=== PATIENT | male | born 1950 | race African-American/Black ===

== ENCOUNTER 2022-12-14 14:47 | Emergency (ER) | payer OTHER ==
[2022-12-14] MEDS ORDERED: Fluorescein Opthalmic Strip ONE (16:32)
[2022-12-14] MEDS ORDERED: Proparacaine 0.5% Opth 15 ML BOT ONE (16:32)
== END 2022-12-14 17:10 ==
LOC: ERS 14:47
DX: H10.9 Unspecified conjunctivitis (principal); E11.9 Type 2 diabetes mellitus without complications; E78.00 Pure hypercholesterolemia, unspecified; I10 Essential (primary) hypertension; Z79.84 Long term (current) use of oral hypoglycemic drugs; Z79.899 Other long term (current) drug therapy; Z79.82 Long term (current) use of aspirin
CPT/HCPCS: 99283